=== PATIENT | female | born 1985 | race Caucasian/White ===

== ENCOUNTER → 2022-02-11 | Outpatient (CLI) | payer BC | LOC: LAB 11:03 | DX: O20.0 Threatened abortion (principal); Z3A.00 Weeks of gestation of pregnancy not specified | CPT/HCPCS: 36415; 84702 ==

== ENCOUNTER → 2022-02-13 | Outpatient (CLI) | payer BC | LOC: LAB 15:30 | DX: O20.0 Threatened abortion (principal) | CPT/HCPCS: 36415; 84702 ==

== ENCOUNTER → 2022-02-27 | Outpatient (CLI) | payer BC | LOC: LAB 14:04 | DX: O20.0 Threatened abortion (principal); Z3A.00 Weeks of gestation of pregnancy not specified | CPT/HCPCS: 36415; 84702 ==

== ENCOUNTER → 2022-03-06 | Outpatient (CLI) | payer BC | LOC: LAB 15:39 | PROVIDERS: ATTEND Obstetrics & Gynecology | DX: O20.0 Threatened abortion (principal); N91.1 Secondary amenorrhea | CPT/HCPCS: 36415; 84702; 84703 ==

== ENCOUNTER → 2022-03-13 | Outpatient (CLI) | payer BC | LOC: LAB 13:56 | PROVIDERS: ATTEND Obstetrics & Gynecology | DX: N91.1 Secondary amenorrhea (principal) | CPT/HCPCS: 36415; 84702 ==

== ENCOUNTER → 2022-03-20 | Outpatient (CLI) | payer BC | LOC: LAB 14:33 | PROVIDERS: ATTEND Obstetrics & Gynecology | DX: N91.1 Secondary amenorrhea (principal) | CPT/HCPCS: 36415; 84702 ==

== ENCOUNTER → 2022-12-15 | Outpatient (CLI) | payer OTHER | LOC: LAB 16:27 | PROVIDERS: ATTEND Obstetrics & Gynecology | DX: N83.202 Unspecified ovarian cyst, left side (principal); N94.6 Dysmenorrhea, unspecified | CPT/HCPCS: 36415; 84144 ==